=== PATIENT | female | born 1980 | race African-American/Black ===

== ENCOUNTER 2018-10-23 06:35 | Observation (INO) ==
[2018-10-23] MEDS ORDERED: Gabapentin 300 MG Capsule PO PRN (06:59)
[2018-10-23] MEDS ORDERED: ceFAZolin 2 GM IV; once IV.SIG PRN (07:03)
[2018-10-23] MEDS ORDERED: Chlorhexidine Gluconate 2% 1 Pack (2 Cloths) TOPICAL ONE (07:06)
[2018-10-23] MEDS ORDERED: Metoprolol Tartrate 25 MG Tablet PO ONE (07:06)
[2018-10-23] MEDS ORDERED: Sugammadex Inj 200 MG/2 ML Vial IV.PUSH ONE (07:10)
[2018-10-23] MEDS ORDERED: Lidocaine 1% Inj 50 ML Vial ONE (07:24)
[2018-10-23] MEDS ORDERED: Ropivacaine 0.5% PF Inj 20 ML Vial ONE (07:24)
[2018-10-23] MEDS ORDERED: Sodium Chlor 0.9% Inj 500 ML IV.SIG SCH (08:00)
[2018-10-23] MEDS ORDERED: Lidocaine 1%/Epinephrine 1:100,000 Inj 30 ML Vial ONE (08:45)
[2018-10-23] MEDS ORDERED: Acetaminophen 325 MG Tablet PO PRN (11:32)
[2018-10-23] MEDS ORDERED: Zolpidem Tartrate 5 MG Tablet PO PRN (11:32)
[2018-10-23] MEDS ORDERED: Oxytocin 30 Units/500ml Premix 30 UNITS/500 ML BAG IV.SIG ONE (11:32)
--- NOTE | 2018-10-23 11:32 | P.OP ---
Surgeon: Robert Mendoza MD Operation and Findings: Preoperative diagnosis: 1. Heavy menstrual bleeding 2. Dysmenorrhea 3. Anemia Postop diagnosis 1. Same as above status post below procedure Procedure 1. Total laparoscopic hysterectomy, bilateral salpingectomy, diagnostic cystoscopy Surgeon Dr. Robert Mendoza Wood Grinder Operator: Dr. Preeti Grant being prescribed throughout the case and assisted due to difficulty with dissection. [facility] surgical staff also assisted as usual Findings: 1. Normal external female genitalia vagina and cervix 2. Normal uterus, bilateral ovaries, fallopian tubes previously ligated. 3. Normal cystoscopy, bilateral ureteral reflux appreciated. 4. Left ovary adhered to the left anterior abdominal wall. Dense bladder adhesions. Filmy omental adhesions at the umbilicus normal appendix and liver. Otherwise pelvis free of scar or adhesions. Anesthesia: General endotracheal Specimen: Uterus, cervix, bilateral fallopian tubes together to pathology, routine Estimated blood loss: 50 cc Fluid replacement: 2 L lactated Ringer's and Pitocin Urine output: 600 cc clear urine Via Jaime DVT prophylaxis: Sequential compression devices throughout the case Antibiotics: 2 g Ancef preoperatively Counts: correct x2 Time out done: yes Disposition: Stable to PACU then likely home in the afternoon Indications: Patient is a 38-year-old -[place] female who was seen in outpatient setting with heavy menstrual bleeding anemia and had failed medical management. She was counseled on her options and elected for the above procedure. Please see H&P and consents for further details Description of procedure:The patient was taken to the operating room and placed under general anesthesia she was positioned in lithotomy position with Patrice stirrups with both arms tucked. The abdomen and vagina were prepped and draped in sterile fashion. A Jaime was inserted. Uterus was sounded to 8 cm, a large V care manipulator was placed with a suture applied to the cervix for traction. Attention was turned to the abdomen. A total of 10 cc of 1% lidocaine with epinephrine was used for each port site. A 5 mm umbilical incision was made at Shahid's point in the left upper quadrant and with direct optical view technique the abdomen was entered and insufflated with CO2 gas, the patient was placed in Trendelenburg. 2 left lower quadrant and one right lower quadrant 5 mm trocars were inserted with direct intra abdominal visualization. A survey was performed with the above findings. The omental adhesions at the umbilicus were taken down with blunt and sharp dissection. A bilateral salpingectomy was performed using the Enseal vessel sealing device and the specimens were removed from the abdomen. The ovary was dissected off the left anterior abdominal wall with use of the Enseal. The left round ligament was transected and the anterior broad ligament opened and a bladder flap was developed with the Enseal and the same was done on the contralateral side. The posterior broad ligament was opened and the uterine arteries were skeletonized. The uterine arteries were clamped desiccated and transected with the Enseal bilaterally. Using monopolar energy a colpotomy was made The uterus was removed vaginally. The vaginal cuff was closed with running 2-0 unidirectional strata fix suture incorporating the uterosacrals for support. The abdomen was irrigated and the surgical sites were found to be hemostatic. A cystoscopy was performed with a 30 laparoscope using normal saline. No damage to the bladder was appreciated and bilateral reflux was noted. The Jaime was left removed the abdomen was desufflated and the trocars removed. The skin was closed with 4-0 Monocryl and skin glue applied overlying. The patient was awoken from anesthesia and transferred to PACU.
[2018-10-23] MEDS ORDERED: fentaNYL Citrate Inj 100 MCG/2 ML Ampul ONE ×2 (11:49→14:27)
[2018-10-23] MEDS ORDERED: *Meperidine Inj 25 MG/ML Vial PERIprocedural Use ONLY ONE (11:57)
[2018-10-23] MEDS ORDERED: *Ondansetron Inj 4 MG/2 ML Vial PERIprocedural Use ONLY ONE (11:57)
[2018-10-23] MEDS ORDERED: Butalbital/APAP/Caff 50/325/40 MG Tablet PO PRN (12:00)
[2018-10-23] MEDS ORDERED: Ketorolac Inj 30 MG/ML (IVP) Vial IV.PUSH ONE (12:00)
[2018-10-23] MEDS ORDERED: *morphine SULFATE 4 MG/ML PERIprocedure ONLY ONE (12:43)
[2018-10-23] MEDS ORDERED: Oxytocin 30 Units/500ml Premix 30 UNITS/500 ML BAG IV.SIG PRN (16:33)
[2018-10-23] MEDS: Ketorolac Inj 30 MG/ML (IVP) Vial IV.PUSH SCH (18:24)
--- NOTE | 2018-10-23 19:27 | P.PNOB ---
Assessment and Plan - Postoperative Procedures Operation Date: 10/23/18 08:30 Actual Procedures Side Surgeon p LAPAROSCOPIC TOTAL HYSTERECTOMY BILATERAL SALPINGECTOMY, CYSTOSCOPY EXAM UNDER ANESTHESIA Robert Mendoza MD 38-year-old s/p TLH, BS, cysto for anemia, HMB, dysmenorrhea 1. POD #0: AF, VSS, Output appropriate, continue routine postoperative care. CBC in the morning. discussed postoperative precautions, expectations, anticipate discharge home the next 24 hours. 2. Fe def anemia: Will give IV iron while inpatient. 3. Vertigo: continue home meds. Postoperative day: 0 - Time Spent With Patient Total time spent is greater than 50% in coordination of care (as documented) at patient's floor/unit and/or counseling patient: Subjective Interval history: Patient states feels somewhat nauseous, tolerating small amounts of fluid and crackers, dizzy with standing, feels well allaying, pain controlled with by mouth medications, but having moderate amount of lower abdominal discomfort. Voiding on bedpan without difficulty. No vaginal bleeding. Physical Exam Vital signs: Temp Pulse Resp BP Pulse Ox 97.3 F L 69 16 119/76 100 10/23/18 13:30 10/23/18 13:30 10/23/18 13:30 10/23/18 13:30 10/23/18 12:45 - Constitutional no acute distress - Routine Respiratory Exam Present: CTA bilaterally - Routine Cardiovascular Exam Present: RRR - Routine Abdominal Exam Comments: Soft, Appropriately tender, wearing abdominal binder did not remove. - Urinary Catheter Management 600 Cath placed during this visit: no Results - Labs Labs: Laboratory Results - last 24 hr 10/23/18 07:15 Blood Type O Positive Antibody Screen Negative MTS Gel Crossmatch See Detail
[2018-10-23] MEDS: Simethicone 80 MG Chew Tablet PO PRN (20:00)
[2018-10-23 20:47] VITALS: RESP 18
[2018-10-23] MEDS: Iron Sucrose Inj 200 MG in Sodium Chlor 0.9% Inj 100 ML IV.SIG SCH (22:07)
[2018-10-24] MEDS: Ketorolac Inj 30 MG/ML (IVP) Vial IV.PUSH SCH ×3 (00:16→11:59)
[2018-10-24 05:01] LABS: Baso % (Auto) 0.1 % (0.0-2.0); Hematocrit 29.1 % (35.0-46.0); Hemoglobin 9.4 gm/dL (11.6-15.3); Lymph # (Auto) 0.8 th/mm3 (1.0-4.8); Lymph % (Auto) 6.4 % (9.0-44.0); Mean Corpuscular HGB Conc 32.5 % (32.0-36.0); Mean Corpuscular Hemoglobin 26.3 pg (27.0-34.0); Mean Corpuscular Volume 81.1 fL (80.0-100.0); Mean Platelet Volume 8.6 fL (7.0-11.0); Mono # (Auto) 0.4 th/mm3 (0.0-0.9); Neut # (Auto) 11.4 th/mm3 (1.8-7.7); Neut % (Auto) 90.5 % (16.0-70.0); Platelet Count 152 th/mm3 (150-450); Red Blood Count 3.59 mil/mm3 (4.00-5.30); Red Cell Distribution Width 16.5 % (11.6-17.2); White Blood Count 12.6 th/mm3 (4.0-11.0)
[2018-10-24 05:49] VITALS: O2SAT 98
[2018-10-24] MEDS: Simethicone 80 MG Chew Tablet PO PRN (06:28)
--- NOTE | 2018-10-24 07:02 | P.PNOB ---
Assessment and Plan - Postoperative Procedures Operation Date: 10/23/18 08:30 Actual Procedures Side Surgeon p LAPAROSCOPIC TOTAL HYSTERECTOMY BILATERAL SALPINGECTOMY, CYSTOSCOPY EXAM UNDER ANESTHESIA Robert Mendoza MD 38-year-old s/p TLH, BS, cysto for anemia, HMB, dysmenorrhea 1. POD #1: AF, VSS, Output appropriate, AM Hb appropriate 9.7 pre op to 9.4. Discharge home today after breakfast if tolerated well. 2. Fe def anemia: continue IV iron while inpatient, d/c with Fe daily and stool softeners. 3. Vertigo: continue home meds. - Time Spent With Patient Total time spent is greater than 50% in coordination of care (as documented) at patient's floor/unit and/or counseling patient: Subjective Interval history: Patient feels much better this morning, ambulating around the room without difficulty, voiding spontaneously, pain much better controlled, minimal nausea, no vomiting, tolerating crackers but has an appetite for breakfast. Physical Exam Vital signs: Temp Pulse Resp BP Pulse Ox 98.3 F 78 18 115/65 98 10/24/18 04:00 10/24/18 04:00 10/24/18 04:00 10/24/18 04:00 10/24/18 04:00 - Constitutional no acute distress - Routine Respiratory Exam Present: CTA bilaterally - Routine Cardiovascular Exam Present: RRR - Routine Abdominal Exam Present: soft Comments: Incisions clean dry and intact - Urinary Catheter Management 600 Cath placed during this visit: no Results - Labs CBC & Chem 7: 10/24/18 04:35 Labs: Laboratory Results - last 24 hr 10/23/18 10/24/18 07:15 04:35 WBC 12.6 H RBC 3.59 L Hgb 9.4 L Hct 29.1 L MCV 81.1 MCH 26.3 L MCHC 32.5 RDW 16.5 Plt Count 152 MPV 8.6 Neut % (Auto) 90.5 H Lymph % (Auto) 6.4 L Taney % (Auto) 3.0 Eos % (Auto) 0.0 Baso % (Auto) 0.1 Neut # (Auto) 11.4 H Lymph # (Auto) 0.8 L Taney # (Auto) 0.4 Eos # (Auto) 0.0 Baso # (Auto) 0.0 WBC Differential . Differential Comment Auto diff final Blood Type O Positive Antibody Screen Negative MTS Gel Crossmatch See Detail
--- NOTE | 2018-10-24 07:57 | P.DS ---
Date of admission: 10/23/18 12:11 Primary care physician: Jeanie Santillan DO Brief History from admission: 38-year-old -[place] female who was admitted after a total laparoscopic hysterectomy, bilateral salpingectomy and cystoscopy for heavy menstrual bleeding and anemia. She met all of her milestones and postoperative day #1 and was discharged home. DS: Medications - Discharge Medications Prescriptions: docusate sodium [Colace] 100 mg PO BID 14 Days #28 cap ferrous sulfate [FeroSul] 325 mg PO DAILY 30 Days #30 tab ibuprofen [IBU] 800 mg PO TID #30 tab oxycodone-acetaminophen [Percocet] 1 tab PO Q4-6H PRN #15 tab PRN Reason: Breakthrough Pain DS: Summary Hospital Course: See brief history - Time Spent with Patient Total time spent providing and/or coordinating discharge services: Less than 30 minutes - Quality: VTE Deep Vein Thrombosis/Pulmonary Embolism Present on Admission: No Exam Vital signs: Vital Signs 10/23/18 11:43 10/23/18 11:45 10/23/18 12:00 Temperature 97.6 F Pulse Rate 75 71 70 Respiratory Rate 20 19 18 Blood Pressure 118/77 112/73 120/77 Pulse Oximetry 100 100 100 10/23/18 12:15 10/23/18 12:28 10/23/18 12:30 Temperature Pulse Rate 69 68 Respiratory Rate 14 16 Blood Pressure 119/76 123/76 Pulse Oximetry 100 100 100 10/23/18 12:45 10/23/18 13:30 10/23/18 20:46 Temperature 97.4 F L 97.3 F L 98.3 F Pulse Rate 77 69 74 Respiratory Rate 20 16 18 Blood Pressure 126/78 119/76 120/70 Pulse Oximetry 100 97 10/24/18 00:21 10/24/18 04:00 Temperature 98.5 F 98.3 F Pulse Rate 96 H 78 Respiratory Rate 18 18 Blood Pressure 93/56 L 115/65 Pulse Oximetry 95 98 Intake & Output 10/23/18 10/24/18 10/24/18 18:59 06:59 18:59 Intake Total 0 / 2049 1000 / 1000 Output Total 1200 / 1200 300 / 300 Balance 850 / 850 700 / 700 Weight 808 kg Intake: IV 50 / 50 1000 / 1000 LR 1000 mL Inj 1,000 ML @ 100 1000 / 1000 mls/hr IV.CONT .Q10H [facility] Rx#: [id number] Ancef 2 GM Premix Inj 2 gm In 50 / 50 50 ml @ 100 mls/hr IV.SIG CHAIR UPHOLSTERER PRN Rx#:[id number] Anesthesia Amount 1999 Output: Urine 1150 / 1150 300 / 300 Estimated Blood Loss 50 / 50 Other: # Voids 1 Weight On Admission 80.8 kg Results Procedures completed during hospitalization: Total laparoscopic hysterectomy, bilateral salpingectomy, diagnostic cystoscopy Pending studies at discharge: Pending at discharge 10/23/18 14:28 Surgical [PTH] Routine Labs on day of discharge: Labs from last 24 hours 10/24/18 10/23/18 04:35 07:15 WBC 12.6 H RBC 3.59 L Hgb 9.4 L Hct 29.1 L MCV 81.1 MCH 26.3 L MCHC 32.5 RDW 16.5 Plt Count 152 MPV 8.6 Neut % (Auto) 90.5 H Lymph % (Auto) 6.4 L Bacon % (Auto) 3.0 Eos % (Auto) 0.0 Baso % (Auto) 0.1 Neut # (Auto) 11.4 H Lymph # (Auto) 0.8 L Bacon # (Auto) 0.4 Eos # (Auto) 0.0 Baso # (Auto) 0.0 WBC Differential . Differential Comment Auto diff final Blood Type O Positive Antibody Screen Negative MTS Gel Crossmatch See Detail Discharge Plan - Discharge Disposition Patient Disposition: 01 Discharge Home - Discharge Condition Condition: Good - Discharge Order Discharge Orders: Discharge Order (Routine); Ordered 10/24/18 Ordered By: Robert Mendoza - Physicians Team Primary Care Provider: Jeanie Santillan Attending Provider: Robert Mendoza - Rxs /Orders / Referrals /Forms Prescriptions: New docusate sodium [Colace] 100 mg Capsule 100 mg PO BID 14 Days Qty: 28 RF: 1 ferrous sulfate [FeroSul] 325 mg (65 mg iron) Tablet 325 mg PO DAILY 30 Days Qty: 30 RF: 1 ibuprofen [IBU] 800 mg Tablet 800 mg PO TID Qty: 30 RF: 1 oxycodone-acetaminophen [Percocet] 5-325 mg Tablet 1 tab PO Q4-6H PRN (Reason: Breakthrough Pain) Qty: 15 RF: 0 Continue [id number] 50-325-40 mg Capsule 1 cap PO Q4-6H PRN (Reason: migraine) meclizine 25 mg Tablet 12.5 mg PO TID PRN (Reason: Vertigo) pantoprazole 40 mg Tablet,Delayed Release (Dr/Ec) 40 mg PO DAILY Referrals: Jeanie Santillan DO [Primary Care Provider] - See Instructions - Discharge Instructions Patient Printed Instructions: Laparoscopic Hysterectomy (DC)
[2018-10-24] MEDS: Iron Sucrose Inj 200 MG in Sodium Chlor 0.9% Inj 100 ML IV.SIG SCH (08:02)
[2018-10-24 13:06] VITALS: BP 114/71; PULSE 80; TEMP 98.5
[2018-10-24] MEDS ORDERED: Measles/Mumps/Rubella Vaccine Inj 0.5 ML Vial SQ ONE (16:00)
[2018-10-24] MEDS ORDERED: Diphtheria/Tetanus/Pertussis Vaccine Inj 0.5 ML Syringe IM ONE (16:00)
== END 2018-10-24 13:01 | disposition home or self-care (01) ==
LOC: HSDI 06:35 → HSDC 06:35 → H1EA 13:17
PROVIDERS: ADMIT Obstetrics & Gynecology; ATTEND Obstetrics & Gynecology